=== PATIENT | male | born 1970 | race Two or more races ===

== ENCOUNTER 2016-06-24 14:12 | Emergency (ER) | payer OTHER ==
[2016-06-24 14:25] VITALS: BP 139/78; PULSE 76; RESP 16; TEMP 97.7
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
--- NOTE | 2016-06-24 16:41 | XR ---
EXAMINATION TYPE: XR chest 1V DATE OF EXAM: 06/24/2016 4:37 PM COMPARISON: NONE HISTORY: Chest pain TECHNIQUE: Single frontal view of the chest is obtained. FINDINGS: There is no focal air space opacity, pleural effusion, or pneumothorax seen. The cardiac silhouette size is within normal limits. The osseous structures are intact. IMPRESSION: 1. No acute process.
--- NOTE | 2016-06-24 16:42 | XR ---
EXAMINATION TYPE: XR shoulder complete LT DATE OF EXAM: 06/24/2016 4:37 PM CLINICAL HISTORY: pain COMPARISON: NONE TECHNIQUE: Three views of the left shoulder are obtained. FINDINGS: There is no acute fracture/dislocation evident. The acromioclavicular and glenohumeral glo int spaces appear within normal limits. The visualized ribs are intact and unremarkable. IMPRESSION: 1. There is no acute fracture or dislocation. ICD 10 NO FRACTURE, INITIAL EVALUATION
--- NOTE | 2016-06-24 16:42 | XR ---
EXAMINATION TYPE: XR lumbosacral spine min 4V DATE OF EXAM: 06/24/2016 4:37 PM CLINICAL HISTORY: pain COMPARISON: NONE TECHNIQUE: Frontal, lateral, and oblique images of the lumbar spine are obtained. FINDINGS: There are 5 lumbar type vertebral bodies identified. The lumbar spine shows satisfactory alignment without evidence of acute fracture or dislocation. Vertebral body heights are within normal limits. Disc spaces are well preserved. The overlying soft tissue appears unremarkable. IMPRESSION: No acute fracture or dislocation is seen in the lumbar spine.ICD 10 NO FRACTURE, INITIAL EVALUATION
--- NOTE | 2016-06-24 16:43 | XR ---
EXAMINATION TYPE: XR foot complete LT DATE OF EXAM: 06/24/2016 4:36 PM CLINICAL HISTORY: pain TECHNIQUE: Frontal, lateral and oblique images of the left foot are obtained. COMPARISON: None. FINDINGS: There is no acute fracture/dislocation evident. The joint spaces appear within normal adhikari its. The overlying soft tissue appears unremarkable. IMPRESSION: There is no acute fracture or dislocation. ICD 10 NO FRACTURE, INITIAL EVALUATION
--- NOTE | 2016-06-24 16:44 | XR ---
EXAMINATION TYPE: XR knee 4V LT DATE OF EXAM: 06/24/2016 4:36 PM CLINICAL HISTORY: pain TECHNIQUE: Three views of the left knee are obtained. Patellar sunrise views also obtained. COMPARISON: None. FINDINGS: There is no acute fracture/dislocation. Patellofemoral joint space narrowing on the sunris e view. The overlying soft tissue appears unremarkable. IMPRESSION: There is no acute fracture or dislocation ICD 10 NO FRACTURE, INITIAL EVALUATION
--- NOTE | 2016-06-24 16:45 | XR ---
EXAMINATION TYPE: XR hand complete bilateral DATE OF EXAM: 06/24/2016 4:37 PM CLINICAL HISTORY: pain TECHNIQUE: Frontal, lateral and oblique images of the bilateral hands are obtained. COMPARISON: None. FINDINGS: There is no acute fracture/dislocation evident. The joint spaces appear within normal limi ts. The overlying soft tissue appears unremarkable. IMPRESSION: There is no acute fracture or dislocation ICD 10 NO FRACTURE, INITIAL EVALUATION
== END 2016-06-24 17:40 | disposition home or self-care (01) ==
LOC: EC 14:12
DX: S16.1XXA Strain of muscle, fascia and tendon at neck level, initial encounter (principal); T14.8 Other injury of unspecified body region; V89.2XXA Person injured in unspecified motor-vehicle accident, traffic, initial encounter; Y92.410 Unspecified street and highway as the place of occurrence of the external cause; M79.642 Pain in left hand; M79.641 Pain in right hand; R07.9 Chest pain, unspecified; M54.5 Low back pain; M25.512 Pain in left shoulder; M25.562 Pain in left knee; M79.672 Pain in left foot; Z86.12 Personal history of poliomyelitis
CPT/HCPCS: 70450; 71010; 72110; 72125; 99284